=== PATIENT | female | born 1965 | race Caucasian/White ===

== ENCOUNTER 2017-10-11 02:45 | Emergency (ER) | payer SELFPAY ==
--- NOTE | 2017-10-11 04:40 | ED PDOC ---
HPI: Psych/Substance Abuse Time Seen by Provider: 10/11/17 03:06 Chief Complaint (Nursing): Psychiatric Evaluation Chief Complaint (Provider): Psychiatric Evaluation History Per: Patient History/Exam Limitations: no limitations Onset/Duration Of Symptoms: Mins ([employer]) Current Symptoms Are (Timing): Still Present Suicide/Self Injury Attempted (Context): None Associated Symptoms: Depression Additional Complaint(s): 52 year old female with a history of depression presents to the ED for a crisis evaluation. Patient reports that she wanted to kill herself and planned on getting into a major car accident. She cites her strained relationship with her son as part of the reason she felt this way. Patient offer no other complaints at this time. PMD none provided Past Medical History Reviewed: Historical Data, Nursing Documentation, Vital Signs Vital Signs: Last Vital Signs Temp 98.0 F 10/11/17 02:56 Pulse 65 10/11/17 02:56 Resp 16 10/11/17 02:56 BP 156/90 H 10/11/17 02:56 Pulse Ox 99 10/11/17 02:56 - Medical History PMH: Depression - Surgical History Surgical History: No Surg Hx - Family History Family History: States: Unknown Family Hx - Allergies Allergies/Adverse Reactions: Allergies Allergy/AdvReac Type Severity Reaction Status Date / Time No Known Allergies Allergy Verified 10/11/17 03:42 Review of Systems ROS Statement: Except As Marked, All Systems Reviewed And Found Negative Psych: Positive for: Suicidal ideation Physical Exam - Reviewed Nursing Documentation Reviewed: Yes Vital Signs Reviewed: Yes - Physical Exam Appears: Positive for: Well, Non-toxic, No Acute Distress Skin: Positive for: Normal Color, Warm, Dry Eye Exam: Positive for: Normal appearance Neck: Positive for: Normal, Painless ROM, Supple Cardiovascular/Chest: Positive for: Regular Rate, Rhythm. Negative for: Murmur Respiratory: Positive for: Normal Breath Sounds. Negative for: Respiratory Distress Gastrointestinal/Abdominal: Positive for: Normal Exam, Soft. Negative for: Tenderness Extremity: Positive for: Normal ROM Neurologic/Psych: Positive for: Alert, Oriented. Negative for: Motor/Sensory Deficits - ECG O2 Sat by Pulse Oximetry: 99 (RA) Pulse Ox Interpretation: Normal Medical Decision Making Medical Decision Makin Impression; Initial Plan: --Crisis eval --1:1 Time 04:45 --Patient is psychiatrically and medically cleared. ---- Scribe Attestation: Documented by Marleny Zepeda, acting as a scribe for Jack Michele MD Provider Scribe Attestation: All medical record entries made by the Scribe were at my direction and personally dictated by me. I have reviewed the chart and agree that the record accurately reflects my personal performance of the history, physical exam, medical decision making, and the department course for this patient. I have also personally directed, reviewed, and agree with the discharge instructions and disposition. Disposition - Clinical Impression Clinical Impression: Depression - Disposition Disposition: Routine/Home Disposition Time: 05:30 Condition: STABLE Instructions: Depression Forms: [facility] (Mosotho) Print Language: BURKINAN
[2017-10-11 05:22] VITALS: BP 144/79; PULSE 77; RESP 15; TEMP 98.6
[2017-10-12 04:41] VITALS: O2SAT 99
== END 2017-10-11 05:22 | disposition home or self-care (01) ==
LOC: H.ER 02:45
DX: F32.9 Major depressive disorder, single episode, unspecified (principal)